=== PATIENT | male | born 1980 | race Caucasian/White ===

== ENCOUNTER 2018-04-18 14:10 | Inpatient (IN) | payer OTHER ==
[~2018-04-18] VITALS: Ht 172.7 cm; Wt 81.6 kg
--- NOTE | 2018-04-18 14:20 | NUR ---
IN CUSTODY [employer]: OK TO NOOK. S/P SWALLOWED HEROIN. NAD NOTED, VSS, RESP EVEN AND UNLABORED, PT WAS PUT MONITOR. AT BS.
[2018-04-18 15:01] LABS: BASOPHILS % (AUTO) 0.5 % (0.0-2.0); EOSINOPHILS % (AUTO) 1.7 % (0.0-6.0); HEMATOCRIT 37 % (39-51); HEMOGLOBIN 12.5 g/dL (13.5-17.5); LYMPHOCYTES # (AUTO) 1.5 /CMM (0.8-4.8); LYMPHOCYTES % (AUTO) 17.3 % (20.0-44.0); MEAN CORPUSCULAR HGB CONC 33 g/dl (31.0-36.0); MEAN CORPUSCULAR VOLUME 82 fL (80-96); MONOCYTES # (AUTO) 0.5 /CMM (0.1-1.30); MONOCYTES % (AUTO) 5.3 % (2.0-12.0); NEUTROPHILS # (AUTO) 6.5 /CMM (1.8-8.9); NEUTROPHILS % (AUTO) 75.2 % (43.0-81.0); PLATELET COUNT (AUTO) 302 /CMM (150-450); RDW COEFFICIENT OF VARIATION 13.6 (11.5-15.0); RED BLOOD CELL COUNT(AUTO) 4.59 MIL/uL (4.5-6.0); WHITE BLOOD COUNT (AUTO) 8.6 K/uL (4.3-11.0)
[2018-04-18 15:12] LABS: CALCIUM, SERUM 8.9 mg/dL (8.5-10.1); CARBON DIOXIDE 29 mmol/L (21-32); CHLORIDE 105 mmol/L (98-107); CREATININE 0.7 mg/dL (0.6-1.3); GLUCOSE 99 mg/dL (74-106); POTASSIUM 3.7 mmol/L (3.5-5.1); SODIUM SERUM 139 mmol/L (136-145); UREA NITROGEN, BLOOD 13 mg/dL (7-18)
[2018-04-18 15:15] LABS: INR 0.95 (0.85-1.15)
[2018-04-18 15:42] LABS: ALANINE AMINOTRANSFERASE 20 U/L (12-78); ALBUMIN 3.4 g/dL (3.4-5.0); ALKALINE PHOSPHATASE 86 U/L (46-116); ASPARTATE AMINOTRANSFERASE 19 U/L (15-37); BILIRUBIN,DIRECT 0.1 mg/dL (0.0-0.2); BILIRUBIN,TOTAL 0.4 mg/dL (0.2-1.0); SALICYLATE 1.8 mg/dL (2.8-20.0); TOTAL PROTEIN, SERUM 7.2 g/dL (6.4-8.2)
[2018-04-18 15:43] LABS: ACETAMINOPHEN 0 ug/ml (10-30); ALCOHOL, BLOOD < 3 mg/dL (0-0)
[2018-04-18 15:59] LABS: APPEARANCE,URINE Clear (CLEAR); BILIRUBIN,URINE Negative (NEGATIVE); BLOOD, URINE Negative Ery/uL (NEGATIVE); COLOR,URINE Yellow (YELLOW); KETONES,URINE Negative (NEGATIVE); LEUKOCYTE ESTERASE ,URINE Negative (NEGATIVE); NITRITE, URINE Negative (NEGATIVE); PROTEIN,URINE Negative (NEGATIVE); UGLUCOSE Negative (NEGATIVE); UROBILINOGEN,URINE 0.2 EU/dL (0.2)
[2018-04-18] MEDS ORDERED: NALOXONE PREFILLED SYRINGE 2 MG/2 ML SYRINGE ONE ×2 (17:30→18:38)
[2018-04-18] MEDS ORDERED: NALOXONE HCL 0.4 MG/ML AMPUL IV ONE ×2 (17:30→19:00)
--- NOTE | 2018-04-18 20:02 | NUR ---
ASSIGNED TO TELE RM#: [id number], DX: [id number], ACCEPTING MD: GLENNA SEGAL
--- NOTE | 2018-04-18 20:16 | NUR ---
enma REDDY took report for rose marie
[2018-04-18 20:25] VITALS: BP 138/76
[2018-04-18 20:30] VITALS: BP 138/76
--- NOTE | 2018-04-18 20:30 | NUR ---
GENERAL OPERATIONS MANAGER NOTES RECEIVED FROM ER PER NILESH A/O X2-3,UNDER THE INFLUENCE OF HEROIN, IN CUSTODY,ACCOMPANIED BY TWO EHR TRAINER,WITH HAND CUFFS ON LEFT WRIST.SALINE LOCK RIGHT AC INTACT AND PATENT.NOTED SKIN REDNESS WITH SMALL WOUND ON RIGHT THIGH,OLD WOUND WITH SCAB ON RIGHT DISTAL CHIN.WILL CONTINUE TO MONITOR STATUS.
[2018-04-18] MEDS ORDERED: ONDANSETRON HCL/PF 4 MG/2 ML VIAL IVP PRN (21:00)
[2018-04-18] MEDS ORDERED: MAG HYDROX/AL HYDROX/SIMETH 30 ML UDC PO PRN (21:00)
[2018-04-18] MEDS ORDERED: MAGNESIUM HYDROXIDE 30 ML UDC PO PRN (21:00)
[2018-04-18] MEDS ORDERED: IV NS 0.9% 1,000 ML IV PRN (21:00)
[2018-04-18] MEDS ORDERED: ACETAMINOPHEN 325 MG TABLET PO PRN (21:00)
[2018-04-19] VITALS: BP 132/74
--- NOTE | 2018-04-19 00:40 | NUR ---
MS RN NOTES PER POLICE OFFICERS,PATIENT IS BEING RELEASED NOW FROM POLICE CUSTODY.HAND CUFFS ON LEFT WRIST REMOVED BY COMMISSIONER OF RELOCATION SERVICES.ASLEEP AT THIS TIME,IVF INFUSING.
[2018-04-19 04:00] VITALS: BP 136/88
--- NOTE | 2018-04-19 04:00 | NUR ---
SENIOR PROCESS ANALYST NOTES AWAKE THIS TIME,PEED 900 ML VIA URINAL.REFUSED IVF THIS TIME AND HE'S ASKING FOR FOOD.
--- NOTE | 2018-04-19 04:15 | NUR ---
COMMERCIAL LINES INSURANCE AGENT NOTES GLENNA BOWLESP WAS NOTIFIED,WITH ORDER TO HAVE PATIENT REGULAR FOOD WHEN FULLY AWAKE.
--- NOTE | 2018-04-19 04:32 | NUR ---
MANAGER PROJECT NOTES OFFERED SANDWICH FOR NOW AND HE CAN HAVE BREAKFAST THIS MORNING.PATIENT TRIED TO CURSE THAT IF THERE'S NO FOOD,HE WILL TAKE OUT HIS SALINE LOCK AND LEAVE THE HOSPITAL.
--- NOTE | 2018-04-19 06:26 | NUR ---
STORAGE ENGINEER NOTES ASKING FOR FOOD,OFFERED SANDWICH BUT HE DIDNT EAT IT.HE WENT BACK TO SLEEP.IVF HELD ,PATIENT REFUSED.ABLE TO PEE BY URINAL.WILL CONTINUE TO MONITOR STATUS.WILL ENDORSE TO DAY NURSE FOR DORINDA.
--- NOTE | 2018-04-19 07:30 | NUR ---
Tele/RN - Assessment Received patient in bed sleeping comfortably, no s/s of pain, not in any form of distress, tele shows SR with PACs. Patient off custody since 04/19/18 00:40 per endorsement, needs to notify [employer] if patient will be discharged. Will continue with current medical management.
[2018-04-19 08:00] VITALS: BP 143/76
[2018-04-19] MEDS ORDERED: PANTOPRAZOLE 40 MG VIAL IV SCH (09:00)
--- NOTE | 2018-04-19 10:10 | NUR ---
Tele/RN - AMA Patient awake, very aggressive and cussing out staff, pacing in the hallway, stating "I need to get out of here now." Explained to pt the risks and consequences of leaving AMA. Patient refused to sign AMA form, belongings list, and photo to be taken on skin breakdown. Patient is ambulatory, A/O x 3, afebrile, vitals stable, denies pain at this time. All belongings with patient and he denies any missing items. Saline lock removed on the RAC with catheter tip intact, no redness, no swelling noted at the site. [employer] called and spoke to Officer Jean [phone]. CN and nursing corduroy cutting supervisor made aware.
== END 2018-04-19 10:25 | disposition left against medical advice (07) | DRG 917 ==
LOC: ER 14:14 → TELE 20:39
PROVIDERS: ADMIT Nurse Practitioner Acute Care; ATTEND Nurse Practitioner Acute Care
DX: T40.601A Poisoning by unspecified narcotics, accidental (unintentional), initial encounter (principal); G92 Toxic encephalopathy; Y92.009 Unspecified place in unspecified non-institutional (private) residence as the place of occurrence of the external cause; K40.90 Unilateral inguinal hernia, without obstruction or gangrene, not specified as recurrent; D64.9 Anemia, unspecified; N20.0 Calculus of kidney; K59.00 Constipation, unspecified; F19.10 Other psychoactive substance abuse, uncomplicated
CPT/HCPCS: 36415; 70486-TC; 71045-TC; 80048-TC; 80076-TC; 80305; 81000-TC; 83735-TC; 85025-TC; 85730-TC; 87081-TC; A4606; C9113; G0480; J2310; J7030; Z7610